=== PATIENT | male | born 1985 | race Two or more races ===

== ENCOUNTER 2017-11-23 17:24 | Emergency (ER) | payer SELFPAY ==
[~2017-11-23] VITALS: Ht 167.6 cm; Wt 63.5 kg
[2017-11-23 17:24] VITALS: BP 140/70
[2017-11-23] MEDS ORDERED: KETOROLAC TROMETHAMINE INJ 30 MG/ML VIAL ONE (18:26)
[2017-11-23] MEDS ORDERED: ACETAMINOPHEN ES 500 MG TABLET ONE (18:26)
[2017-11-23] MEDS ORDERED: ACETAMINOPHEN 325 MG TABLET PO ONE (18:30)
[2017-11-23] MEDS ORDERED: KETOROLAC TROMETHAMINE INJ 60 MG/2 ML VIAL IM ONE (18:30)
== END 2017-11-23 18:37 | disposition home or self-care (01) ==
LOC: ER 17:30 → EDSEX 17:30 → ER 18:37
DX: M43.6 Torticollis (principal); F17.200 Nicotine dependence, unspecified, uncomplicated; Z98.890 Other specified postprocedural states
CPT/HCPCS: 96372; 99283; 99406; A4606; J1885; Z7610